=== PATIENT | female | born 1965 | race Caucasian/White ===

== ENCOUNTER → 2019-11-25 09:04 | Outpatient (CLI) | payer OTHER, SELFPAY ==
--- NOTE | 2019-11-25 09:07 | DI.RAD.S_ITS ---
PROCEDURE: XR LUMBAR SPINE MIN 4V INDICATIONS: Progressive low back TECHNIQUE: 5 total views of the lumbar spine were acquired, including bilateral oblique views. COMPARISON: None. FINDINGS: Bones: 5 nonrib-bearing, lumbar type vertebral bodies are seen. Minimal levoconvex scoliotic curvature is seen. No focal AP alignment abnormality is seen. No displaced fractures are seen. No suspicious lytic or blastic lesions are seen. Mild to moderate disc space narrowing is seen at the L5-S1 level. The disc heights otherwise appear well-preserved. Lower lumbar spine facet arthropathy is seen. Soft tissues: Overlying bowel gas pattern is normal. No suspicious soft tissue calcifications. Atherosclerotic calcification is noted. Oblique images: No pars defects. IMPRESSION: Focal L5-S1 degenerative change is seen. Minimal levoconvex scoliotic curvature. No pars defects are seen. Dictated by: Rosalio Covarrubias M.D. on 11/25/2019 at 10:23 Approved by: Rosalio Covarrubias M.D. on 11/25/2019 at 10:24
== END ==
PROVIDERS: PCP Nurse Practitioner; Referring Provider Physical Medicine & Rehabilitation; Visit Provider Physical Medicine & Rehabilitation
DX: M54.5 Low back pain (principal); M47.27 Other spondylosis with radiculopathy, lumbosacral region
CPT/HCPCS: 72110

== ENCOUNTER → 2020-01-05 15:44 | Outpatient (CLI) | payer OTHER, SELFPAY | PROVIDERS: PCP Nurse Practitioner; Referring Provider Nurse Practitioner; Visit Provider Physical Medicine & Rehabilitation | DX: M54.16 Radiculopathy, lumbar region (principal); Z53.20 Procedure and treatment not carried out because of patient's decision for unspecified reasons ==

== ENCOUNTER → 2020-01-15 17:05 | Outpatient (CLI) | payer OTHER, SELFPAY ==
--- NOTE | 2020-01-15 | DI.MRI.S_ITS ---
PROCEDURE: MR LUMBAR SPINE WO CON INDICATIONS: Radiculopathy, lumbar region TECHNIQUE: Noncontrast sagittal T1 spin echo and T2 fast echo, sagittal STIR, axial T1 and T2 fast spin echo through the lumbar spine. In cases with scoliosis, additional coronal T2 fast spin echo may be performed. COMPARISON: None. FINDINGS: Image quality: Excellent. Alignment and Curvature: There is normal bony alignment. Bone Marrow: Marrow is of normal overall signal. No acute vertebral body compression fractures. Spinal Cord: Conus medullaris terminates at the T12-L1 level. Visualized cord demonstrates normal signal and size. Paraspinous Soft Tissues: No paravertebral masses. L1-L2: No appreciable degenerative disc disease or facet osteoarthritis. L2-L3: There is a mild degree of degenerative disc height reduction and disc desiccation and a slight posterior transverse disc bulge that does not produce significant spinal stenosis. Mild facet osteoarthritis without foraminal stenosis. 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 The impingement is symmetric, moderate, and also involves the neural foramen. L4-L5: Moderate degenerative disc height reduction and desiccation, moderately severe facet osteoarthritis. Ligamentum flavum hypertrophy is present as a result, and this further crowds the nerve roots within the thecal sac to a greater degree than that seen immediately above, with moderately severe spinal stenosis. Foraminal stenosis is moderately severe also.. L5-S1: The degenerative changes at this level are less, with only a small degree of disc height reduction and disc desiccation. Facet osteoarthritis is moderate, but not significantly narrowing the neural foramen. No significant spinal or foraminal stenosis. IMPRESSION: Multilevel degenerative changes as detailed, most pronounced at L3-4 and L4-5. No disc herniation is found. Significant spinal and foraminal stenosis would be expected and is visualized from L3 through L5. Dictated by: Austin Miller M.D. on 01/16/2020 at 16:32 Approved by: Austin Miller M.D. on 01/16/2020 at 16:38
== END ==
PROVIDERS: PCP Nurse Practitioner; Referring Provider Physical Medicine & Rehabilitation; Visit Provider Physical Medicine & Rehabilitation
DX: M47.26 Other spondylosis with radiculopathy, lumbar region (principal)
CPT/HCPCS: 72148

== ENCOUNTER → 2021-07-05 14:11 | Outpatient (CLI) | payer OTHER, SELFPAY ==
[2021-07-05 15:09] LABS: COVID19 -Nasal RAPID Negative (Negative)
== END ==
PROVIDERS: PCP Nurse Practitioner; Visit Provider Physical Medicine & Rehabilitation
DX: Z20.822 Contact with and (suspected) exposure to COVID-19 (principal)
CPT/HCPCS: 87635; C9803

== ENCOUNTER 2021-07-07 07:26 | Outpatient (CLI) | payer OTHER, SELFPAY ==
[2021-07-07] VITALS (8 sets, daily range): BP systolic 107–131; BP diastolic 63–82; PULSE 66–72; RESP 11–25; TEMP 36.2; O2SAT 96–100
--- NOTE | 2021-07-07 07:36 | DI.RAD.S_ITS ---
PROCEDURE: PAIN L/S TRANSFORAMINAL INJECT INDICATIONS: SPONDYLOSIS COMPARISON: [facility], CR, XR LUMBAR SPINE MIN 4V, 11/25/2019, 9:03. FINDINGS: Fluoroscopic spot filming was performed to verify placement of a spinal needle at the L4-L5 level, as labeled on the films. Appropriate location of the needle tip was confirmed by injection of iodinated contrast. IMPRESSION: Intraprocedural examination within normal limits. Dictated by: Rosalio Covarrubias M.D. on 07/07/2021 at 8:58 Approved by: Rosalio Covarrubias M.D. on 07/07/2021 at 8:59
--- NOTE | 2021-07-07 07:38 | DI.RAD.S_ITS ---
PROCEDURE: XR SHOULDER RT MIN 2V INDICATIONS: Right shoulder bicipital tendinitis TECHNIQUE: 3 views of the shoulder were acquired. COMPARISON: None. FINDINGS: Bones: No fractures or dislocations. No suspicious bony lesions. Visualized ribs appear intact. [id number] acromioclavicular degenerative narrowing. No erosions. Soft tissues: No suspicious soft tissue calcifications. IMPRESSION: [id number] acromioclavicular arthritis. Dictated by: Patricia Kelley M.D. on 07/07/2021 at 11:10 Approved by: Patricia Kelley M.D. on 07/07/2021 at 11:10
[2021-07-07] MEDS: MIDAZOLAM 5 MG/5 ML VIAL IV (08:23)
[2021-07-07] MEDS: BUPIVACAINE 0.25% (PF) VIAL 2 ML INJ (08:28)
[2021-07-07] MEDS: IOPAMIDOL 15 ML VIAL 3 ML INJ (08:28)
[2021-07-07] MEDS: DEXAMETHASONE 10 MG/ML VIAL 20 MG INJ (08:29)
[2021-07-07] MEDS: BETAMETHASONE 30 MG/5 ML MDV (08:29)
--- NOTE | 2021-07-07 08:41 | P.PCN_ITS ---
Date/Time/Diagnoses Date of procedure: 07/07/21 Time of procedure: 08:41 Pre-procedure diagnosis: 1. FORAMINAL STENOSIS WITH LE SYMPTOMS Post-procedure diagnosis: same Procedure Notes Procedure: 1. FLUOROSCOPICALLY GUIDED CONTRAST CONTROLLED TRANSFORAMINAL EPIDURAL STEROID INJECTION - RIGHT L4/5 TFESI Indications: Alecia is referred by YON Beatty for treatment of Foraminal Stenosis with Right LE Symptoms Physician: Frank Rivera Total Fluoroscopy time (seconds): 12 Total sedation minutes: 13 Complications: none Procedure in detail & Post-procedure care: FINDINGS Foraminal Nerve Root Compression secondary to disc disease and facet hypertrophy DESCRIPTION OF PROCEDURE Following review of allergy and review of potential side effects and complications, including, but not necessarily limited to, infection, allergic reaction, local tissue breakdown, stroke, temporary or permanent nerve injury, paralysis, and possible , the patient indicated that the patient understood and agreed to proceed. An informed consent document was signed by the patient, witnessed by a nurse, and placed in the patient's chart. Additionally, other treatment options including medications, modalities, and physical therapy were reviewed with the patient. After review of previous anaesthesic history and IV conscious sedation the patient was deemed safe to proceed with today?s procedure with IV conscious sedation as ASA class II designation. Safety time-out was performed to confirm patient ID, procedure to be performed and site of procedure. IV sedation was accomplished with a combination of 2mg of Versed was administered by the RN after DO order, titrated to patient comfort during the course of the procedure while the patient remained responsive to all verbal commands In the prone position following sterile prep and drape of the lumbar region, the right L4/5 posterior neuroforamen was identified fluoroscopically. The skin was anesthetized via a 25-gauge 1.5-inch needle with 1% lidocaine solution. At this point, a 25-gauge 3.5-inch spinal needle was atraumatically introduced and advanced under fluoroscopic guidance through the posterior right L4/5 neuroforamen to approximately the anterior aspect of the canal. Depth was confirmed on lateral view. Following negative aspiration, injection of approximately 1.5cc of Isovue 200 under live fluoroscopy in the AP view c onfirmed excellent flow along the nerve root, into the epidural space without vascular or intrathecal uptake observed Radiological data, including multiple fluoroscopic views of the lumbosacral spi ne, reveal a spinal needle at the right L4/5 posterior neuroforamen. Subsequent views show flow of contrast material flowing superiorly and inferiorly along the nerve root confirming epidural flow. Subsequently, a test dose of 1.5 cc of 1% lidocaine solution was administered and patient was observed for two minutes for signs or symptoms of complications, including abdominal pain, shortness of breath, bilateral upper or lower extremity weakness, nausea and vomiting, prior to steroid injection. At this point, a total of 3cc or 20mg of dexamethasone and 6mg of betamethasone was injected without incident. The procedure tolerated the procedure well without signs or symptoms of complications prior to transfer to the recovery area continued monitoring without incident. The patient was then transferred to the recovery area where they were observed for an appropriate time after the injection. The patient reported a VAS score of 7 prior to the procedure and a post- procedure VAS of 0. POST OP INSTRUCTIONS The patient was provided a Pain Log to continue to record their response to the target-specific procedure prior to follow-up visit with their referring physician. Additionally, specific post-injection care instructions and a contact number to our office were provided if concerns arise regarding possible complications associated with the procedure are suspected.
== END 2021-07-07 09:00 | disposition home or self-care (01) ==
LOC: RAD 07:27
PROVIDERS: PCP Nurse Practitioner; Referring Provider Physical Medicine & Rehabilitation; Visit Provider Physical Medicine & Rehabilitation
DX: M75.21 Bicipital tendinitis, right shoulder; M75.41 Impingement syndrome of right shoulder; M19.011 Primary osteoarthritis, right shoulder; M48.061 Spinal stenosis, lumbar region without neurogenic claudication; M51.16 Intervertebral disc disorders with radiculopathy, lumbar region
CPT/HCPCS: 64483; 73030; 99152; J0702; J1100; J2250; J3010

== ENCOUNTER → 2021-09-07 15:43 | Outpatient (CLI) | payer OTHER, SELFPAY ==
--- NOTE | 2021-09-07 15:45 | DI.MRI.S_ITS ---
PROCEDURE: MR LUMBAR SPINE WO CON INDICATIONS: Right L5 radiculopathy TECHNIQUE: Noncontrast sagittal T1 spin echo and T2 fast echo, sagittal STIR, and T2 fast spin echo through the lumbar spine. In cases with scoliosis, additional coronal T2 fast spin echo may be performed. COMPARISON: [facility], CR, XR LUMBAR SPINE MIN 4V, 11/25/2019, 9:03. [facility], MR, MR LUMBAR SPINE WO CON, 01/15/2020, 17:18. FINDINGS: Image quality: Excellent. Alignment and Curvature: 5 lumbar type vertebral bodies are present by plain film. Roughly 3 mm of retrolisthesis of L2 on L3. Bone Marrow: Marrow is of normal overall signal. No acute vertebral body compression fractures. Spinal Cord: Conus medullaris terminates at the mid L1 level. Visualized cord demonstrates normal signal and size. Paraspinous Soft Tissues: No paravertebral masses. T12-L1: Mild disc height loss. Mild diffuse disc bulge with small superimposed right posterolateral protrusion. Mild canal stenosis. No foraminal stenosis. L1-L2: Mild disc height loss and desiccation. Mild diffuse disc bulge. Mild bilateral facet hypertrophy. Mild epidural lipomatosis. No significant canal stenosis. Mild bilateral foraminal stenosis. No significant change. L2-L3: Mild disc height loss and desiccation. Mild diffuse disc bulge. Mild epidural lipomatosis. Mild facet hypertrophy. Mild canal stenosis. Mild bilateral foraminal stenosis. No significant change. L3-L4: Mild disc desiccation and diffuse disc bulge. Mild facet and ligamentum flavum hypertrophy. Mild epidural lipomatosis. Moderate canal stenosis. Mild bilateral foraminal stenosis. No significant change. L4-L5: Mild disc height loss and desiccation. Mild diffuse disc bulge. Mild facet and ligamentum flavum hypertrophy. Mild epidural lipomatosis. Severe canal stenosis. Mild left and moderate right foraminal stenosis. No significant change. L5-S1: Mild disc desiccation. Mild bilateral facet hypertrophy. Mild epidural lipomatosis. Mild canal stenosis. Mild bilateral foraminal stenosis. No significant change. IMPRESSION: 1. Multilevel degenerative disc and facet disease, as well as ligamentum flavum hypertrophy and epidural lipomatosis. 2. Multilevel canal stenoses, worst at L4-L5 where there is severe canal stenosis. 3. Multilevel foraminal stenoses, worst at L4-L5 where there is moderate foraminal stenosis. Dictated by: Alla Jesus M.D. on 09/08/2021 at 9:12 Approved by: Alla Jesus M.D. on 09/08/2021 at 9:16
== END ==
PROVIDERS: PCP Nurse Practitioner; Referring Provider Physical Medicine & Rehabilitation; Visit Provider Physical Medicine & Rehabilitation
DX: M54.16 Radiculopathy, lumbar region (principal); M51.36 Other intervertebral disc degeneration, lumbar region; M48.061 Spinal stenosis, lumbar region without neurogenic claudication; E88.2 Lipomatosis, not elsewhere classified; M46.06 Spinal enthesopathy, lumbar region
CPT/HCPCS: 72148

== ENCOUNTER → 2021-09-12 14:31 | Outpatient (CLI) | payer OTHER, SELFPAY ==
--- NOTE | 2021-09-12 14:32 | DI.RAD.S_ITS ---
PROCEDURE: XR LUMBAR SPINE MIN 4V INDICATIONS: BACK PAIN TECHNIQUE: 5 views of the lumbar spine were acquired, including bilateral oblique views. COMPARISON: [facility], , XR LUMBAR SPINE MIN 4V, 11/25/2019, 9:03. FINDINGS: Bones: 5 nonrib-bearing vertebrae are present. There is 5 mm retrolisthesis of L2 on L3. Mild degenerative endplate changes are seen throughout lumbar spine. No vertebral body compression fractures. No suspicious bony lesions. Soft tissues: Overlying bowel gas pattern is normal. No suspicious soft tissue calcifications. Oblique images: No pars defects. IMPRESSION: 5 mm retrolisthesis of L2 on L3. No acute compression fracture. Mild degenerative disc disease throughout lumbar spine. Dictated by: Eric Sams M.D. on 09/12/2021 at 15:21 Approved by: Eric Sams M.D. on 09/12/2021 at 15:22
== END ==
PROVIDERS: PCP Nurse Practitioner; Referring Provider Physical Medicine & Rehabilitation; Visit Provider Physical Medicine & Rehabilitation
DX: M51.16 Intervertebral disc disorders with radiculopathy, lumbar region
CPT/HCPCS: 72110

== ENCOUNTER → 2021-09-19 13:51 | Outpatient (CLI) | payer OTHER, SELFPAY ==
[2021-09-19 16:09] LABS: COVID19 -Nasal RAPID Negative (Negative)
== END ==
PROVIDERS: PCP Nurse Practitioner; Visit Provider Physical Medicine & Rehabilitation
DX: Z20.822 Contact with and (suspected) exposure to COVID-19 (principal)
CPT/HCPCS: 87635; C9803

== ENCOUNTER 2021-09-20 08:59 | Outpatient (CLI) | payer OTHER, SELFPAY ==
[2021-09-20] VITALS (8 sets, daily range): BP systolic 111–126; BP diastolic 63–82; PULSE 66–73; RESP 12–24; TEMP 35.9; O2SAT 98–100
--- NOTE | 2021-09-20 09:00 | DI.RAD.S_ITS ---
PROCEDURE: PAIN L INTERLAMINAR/CAUDAL INJ INDICATIONS: SPONDYLOSIS COMPARISON: None. FINDINGS: Fluoroscopic spot filming was performed to verify placement of spinal needles at the L4-L5 interlaminar space level(s), as labeled on the films. Appropriate location(s) of the needle tip(s) was confirmed by injection of iodinated contrast. IMPRESSION: Access needle at the L4-L5 interlaminar space for translaminar epidural steroid injection. Dictated by: Mary Hickey MD, PhD on 09/20/2021 at 11:29 Approved by: Mary Hickey MD, PhD on 09/20/2021 at 11:30
[2021-09-20] MEDS: MIDAZOLAM 2 MG/2 ML VIAL IV (10:20)
[2021-09-20] MEDS: BETAMETHASONE 30 MG/5 ML MDV 6 MG INJ (10:25)
[2021-09-20] MEDS: IOPAMIDOL 15 ML VIAL 3 ML INJ (10:25)
[2021-09-20] MEDS: BUPIVACAINE 0.25% (PF) VIAL 2 ML INJ (10:25)
[2021-09-20] MEDS: DEXAMETHASONE 10 MG/ML VIAL 20 MG INJ (10:26)
--- NOTE | 2021-09-20 10:32 | P.PCN_ITS ---
Date/Time/Diagnoses Date of procedure: 09/20/21 Time of procedure: 10:32 Pre-procedure diagnosis: 1. HNP WITH RADICULAR FEATURES, 2. MULTILEVEL CENTRAL STENOSIS, Post-procedure diagnosis: same Procedure Notes Procedure: 1. FLUOROSCOPICALLY GUIDED CONTRAST CONTROLLED INTERLAMINAR EPIDURAL STEROID INJECTION -L4/5 Indications: Leanna is referred by YON Beatty for treatment of Bilateral Foraminal Stenosis R>L LE symptoms. Physician: Frank Rivera Total Fluoroscopy time (seconds): 5 Total sedation minutes: 8 Complications: none Procedure in detail & Post-procedure care: FINDINGS Multilevel Central Spinal Stenosis with Nerve Root Compression DESCRIPTION OF PROCEDURE Fluoroscopically guided, contrast-controlled L4/5 translaminar epidural steroid injection. Following review of allergy and review of potential side effects and complications, including, but not necessarily limited to, infection, allergic reaction, local tissue breakdown, temporary as well as permanent nerve injury, paralysis, stroke and possible , the patient indicated that the patient understood and agreed to proceed. An informed consent document was signed by the patient, witnessed by a nurse, and placed in the patient's chart. Additionally, other treatment options including modalities, medications, and physical therapy were reviewed with the patient. After review of previous anaesthesic history and IV conscious sedation the patient was deemed safe to proceed with today?s procedure with IV conscious sedation as ASA class II designation. Safety time-out was performed to confirm patient ID, procedure to be performed and site of procedure. IV sedation was accomplished with a combination of 2mg of Versed was administered by the RN after DO order, titrated to patient comfort during the course of the procedure while the patient remained responsive to all verbal commands In the prone position, following sterile prep and drape of the lumbar region, the L4/5 translaminar space was identified fluoroscopically. The skin was anesthetized via a 25-gauge, 1.5inch needle with 1% lidocaine solution. At this point, a 22-gauge short bevel spinal needle was atraumatically introduced and a dvanced under fluoroscopic guidance into the region of the L4/5 translaminar space. Depth was confirmed on lateral view. Radiological data, including multiple fluoroscopic views of the lumbar spine, reveal a spinal needle at the L4/5 translaminar space. Lateral views then show placement of the needle in the epidural space. Subsequent views show contrast material flowing superiorly and inferiorly in the epidural space. No vascular or intrathecal uptake is observed. At this point, using loss of resistance technique with saline and air, the epidural space was entered. This was confirmed following negative aspiration with injection of approximately 1.5cc of Isovue 200, showing excellent epidural flow without vascular or intrathecal uptake. At this point, 1cc of 1% lidocaine solution combined with 3cc or 20mg of dexamethasone and 6mg betamethasone was injected without incident. The patient tolerated the procedure well without signs or symptoms of complications prior to transfer to the recovery area continued monitoring without incident. The patient was then transferred to the recovery area where they were observed for an appropriate period of time after the injection. The patient reported a VAS score of 6 prior to the procedure and a post- procedure VAS of 0. POST OP INSTRUCTIONS The patient was provided a Pain Log to continue to record their response to the target-specific procedure prior to follow-up visit with their referring physician. Additionally, specific post-injection care instructions and a contact number to our office were provided if concerns arise regarding possible complications associated with the procedure are suspected.
== END 2021-09-20 10:54 | disposition home or self-care (01) ==
LOC: RAD 09:00
PROVIDERS: PCP Nurse Practitioner; Referring Provider Physical Medicine & Rehabilitation; Visit Provider Physical Medicine & Rehabilitation
DX: M51.16 Intervertebral disc disorders with radiculopathy, lumbar region (principal); M48.061 Spinal stenosis, lumbar region without neurogenic claudication
CPT/HCPCS: 62323; J0702; J1100; J2250

== ENCOUNTER → 2021-11-29 13:50 | Outpatient (CLI) | payer OTHER, SELFPAY ==
[2021-11-29 14:28] LABS: COVID19 -Nasal RAPID Negative (Negative)
== END ==
PROVIDERS: PCP Nurse Practitioner; Visit Provider Physical Medicine & Rehabilitation
DX: Z20.822 Contact with and (suspected) exposure to COVID-19 (principal)
CPT/HCPCS: 87635; C9803

== ENCOUNTER 2021-12-01 09:33 | Outpatient (CLI) | payer OTHER, SELFPAY ==
[2021-12-01] VITALS (9 sets, daily range): BP systolic 145–177; BP diastolic 88–98; PULSE 54–70; RESP 14–20; TEMP 36.1; O2SAT 97–100
--- NOTE | 2021-12-01 09:35 | DI.RAD.S_ITS ---
PROCEDURE: PAIN L/S TRANSFORAMINAL INJECT INDICATIONS: SPONDYLOSIS COMPARISON: [facility], MR, MR LUMBAR SPINE WO CON, 09/07/2021, 15:49. [facility], CR, XR LUMBAR SPINE MIN 4V, 09/12/2021, 14:25. FINDINGS: Fluoroscopic spot filming was performed to verify placement of spinal needles at the right L5-S1 level(s), as labeled on the films. Appropriate location(s) of the needle tip(s) was confirmed by injection of iodinated contrast. IMPRESSION: Fluoroscopy for pain management. Dictated by: Milton Herrmann M.D. on 12/01/2021 at 16:29 Approved by: Milton Herrmann M.D. on 12/01/2021 at 16:30
[2021-12-01] MEDS: MIDAZOLAM 2 MG/2 ML VIAL IV (10:30)
[2021-12-01] MEDS: IOPAMIDOL 15 ML VIAL 3 ML INJ (10:36)
[2021-12-01] MEDS: DEXAMETHASONE 10 MG/ML VIAL 20 MG INJ (10:37)
[2021-12-01] MEDS: BUPIVACAINE 0.25% (PF) VIAL 2 ML INJ (10:37)
[2021-12-01] MEDS: BETAMETHASONE 30 MG/5 ML MDV 6 MG INJ (10:37)
--- NOTE | 2021-12-01 10:47 | P.PCN_ITS ---
Date/Time/Diagnoses Date of procedure: 12/01/21 Time of procedure: 10:47 Pre-procedure diagnosis: FORAMINAL STENOSIS WITH LE SYMPTOMS Post-procedure diagnosis: same Procedure Notes Procedure: 1. FLUOROSCOPICALLY GUIDED CONTRAST CONTROLLED TRANSFORAMINAL EPIDURAL STEROID INJECTION - RIGHT L5/S1 TFESI Indications: Ryan referred by YON Beatty for treatment of Foraminal Stenosis with Right LE Symptoms Physician: Frank Rivera Total Fluoroscopy time (seconds): 10 Total sedation minutes: 13 Complications: none Procedure in detail & Post-procedure care: FINDINGS Foraminal Nerve Root Compression secondary to disc disease and facet hypertrophy DESCRIPTION OF PROCEDURE Following review of allergy and review of potential side effects and complications, including, but not necessarily limited to, infection, allergic re action, local tissue breakdown, stroke, temporary or permanent nerve injury, paralysis, and possible , the patient indicated that the patient understood and agreed to proceed. An informed consent document was signed by the patient, witnessed by a nurse, and placed in the patient's chart. Additionally, other treatment options including medications, modalities, and physical therapy were reviewed with the patient. After review of previous anaesthesic history and IV conscious sedation the patient was deemed safe to proceed with today?s procedure with IV conscious sedation as ASA class II designation. Safety time-out was performed to confirm patient ID, procedure to be performed and site of procedure. IV sedation was accomplished with a combination of 2mg of Versed was administered by the RN after DO order, titrated to patient comfort during the course of the procedure while the patient remained responsive to all verbal commands In the prone position following sterile prep and drape of the lumbar region, the right L5/S1 posterior neuroforamen was identified fluoroscopically. The skin was anesthetized via a 25-gauge 1.5-inch needle with 1% lidocaine solution. At this point, a 25-gauge 3.5-inch spinal needle was atraumatically introduced and advanced under fluoroscopic guidance through the posterior right L5/S1 neuroforamen to approximately the anterior aspect of the canal. Depth was confirmed on lateral view. Following negative aspiration, injection of approximately 1.5cc of Isovue 200 under live fluoroscopy in the AP view confirmed excellent flow along the nerve root, into the epidural space without vascular or intrathecal uptake observed Radiological data, including multiple fluoroscopic views of the lumbosacral spine, reveal a spinal needle at the right L5/S1 posterior neuroforamen. Subsequent views show flow of contrast material flowing superiorly and inferiorly along the nerve root confirming epidural flow. Subsequently, a test dose of 1.5 cc of 1% lidocaine solution was administered and patient was observed for two minutes for signs or symptoms of complications, including abdominal pain, shortness of breath, bilateral upper or lower extrem ity weakness, nausea and vomiting, prior to steroid injection. At this point, a total of 3cc or 20mg of dexamethasone and 6mg of betamethasone was injected without incident. The procedure tolerated the procedure well without signs or symptoms of complications prior to transfer to the recovery area continued monitoring without incident. The patient was then transferred to the recovery area where they were observed for an appropriate time after the injection. The patient reported a VAS score of 7 prior to the procedure and a post- procedure VAS of 0. POST OP INSTRUCTIONS The patient was provided a Pain Log to continue to record their response to the target-specific procedure prior to follow-up visit with their referring physician. Additionally, specific post-injection care instructions and a contact number to our office were provided if concerns arise regarding possible complications associated with the procedure are suspected.
== END 2021-12-01 11:07 | disposition home or self-care (01) ==
LOC: RAD 09:34
PROVIDERS: PCP Nurse Practitioner; Referring Provider Physical Medicine & Rehabilitation; Visit Provider Physical Medicine & Rehabilitation
DX: M47.816 Spondylosis without myelopathy or radiculopathy, lumbar region (principal); M54.16 Radiculopathy, lumbar region
CPT/HCPCS: 64483; 99152; J0702; J1100; J2250; J3490

== ENCOUNTER → 2022-07-13 12:08 | Outpatient (CLI) | payer OTHER, SELFPAY | PROVIDERS: Family Provider Nurse Practitioner; PCP Nurse Practitioner; Referring Provider Physical Medicine & Rehabilitation; Visit Provider Physical Medicine & Rehabilitation | DX: G56.00 Carpal tunnel syndrome, unspecified upper limb (principal) | CPT/HCPCS: 95885; 95886; 95912 ==

== ENCOUNTER → 2022-11-08 08:47 | Outpatient (CLI) | payer OTHER, SELFPAY ==
--- NOTE | 2022-11-08 08:47 | DI.MRI.S_ITS ---
PROCEDURE: MR KNEE LT WO CON INDICATIONS: left knee sprain with possible meniscal tear, collateral lig TECHNIQUE: Noncontrast sagittal PD fast spin echo and T2 fast spin echo with fat saturation, sagittal 3-D FLASH with fat saturation; coronal T1 spin echo and PD fast spin echo with fat saturation, and axial PD fast spin echo with fat saturation through the knee. COMPARISON: [facility], CR, XR KNEE ARTHRITIC SERIES BI, 08/14/2022, 15:46. FINDINGS: Image quality: Excellent. Anterior Cruciate Ligament: Intact. Posterior Cruciate Ligament: Intact. Medial Collateral Ligament: Intact. Lateral Collateral Ligament: Intact. Medial Meniscus: Intact. Lateral Meniscus: Intact. Medial and Lateral Tendons: The semimembranosus tendon insertions and meniscocapsular junction appear intact. Visualized portions of the pes anserinus tendons appear normal. No abnormal bursal fluid. The long and short heads of the biceps femoris tendon appear intact. The popliteus tendon appears intact. No signs of posterolateral corner injury. Iliotibial band appears normal. Anterior Structures: Small distal quadriceps enthesophyte. The quadriceps and patellar tendons appear intact. No patellar subluxation. No femoral trochlear dysplasia or ventral trochlear prominence. No edema in the infrapatellar fat pad. Bones: No acute trabecular bone injury or fracture. Articular cartilages: Generalized partial-thickness cartilage thinning is seen throughout the knee with superimposed focal high-grade partial-thickness cartilage irregularity at the median ridge and medial facet of the patella. Soft Tissues: A small amount of joint fluid is present. Trace medial popliteal cyst. The musculature surrounding the knee is normal in bulk. IMPRESSION: 1. 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 2. No acute trabecular bone injury. The cruciate and collateral ligaments are intact. There is no meniscal tear. 3. Small joint effusion. Approved by: Maximo Stewart M.D. on 11/08/2022 at 15:00
== END ==
PROVIDERS: Family Provider Nurse Practitioner; PCP Nurse Practitioner; Referring Provider Physical Medicine & Rehabilitation; Visit Provider Physical Medicine & Rehabilitation
DX: S83.207A Unspecified tear of unspecified meniscus, current injury, left knee, initial encounter (principal); S83.429A Sprain of lateral collateral ligament of unspecified knee, initial encounter; M94.262 Chondromalacia, left knee; M25.462 Effusion, left knee
CPT/HCPCS: 73721

== ENCOUNTER 2023-06-14 07:25 | Outpatient (CLI) | payer OTHER, SELFPAY ==
[2023-06-14] VITALS (10 sets, daily range): BP systolic 131–167; BP diastolic 77–96; PULSE 65–74; RESP 9–18; TEMP 36; O2SAT 95–100
--- NOTE | 2023-06-14 08:00 | DI.RAD.S_ITS ---
PROCEDURE: PAIN L/S TRANSFORAM INJECT SHILO COMPARISON: None. INDICATIONS: SPINAL STENOSIS FINDINGS: Intraoperative image demonstrate needle and contrast placement overlying L4-5. IMPRESSION: Needle and contrast placement overlying L4-5. Dictated by: Patricia Kelley M.D. on 06/14/2023 at 10:56 Approved by: Patricia Kelley M.D. on 06/14/2023 at 10:57
[2023-06-14] MEDS: MIDAZOLAM 2 MG/2 ML VIAL IV (08:08)
[2023-06-14] MEDS: DEXAMETHASONE 10 MG/ML VIAL 20 MG INJ (08:08)
[2023-06-14] MEDS: BETAMETHASONE 30 MG/5 ML MDV 12 MG INJ (08:18)
[2023-06-14] MEDS: BUPIVACAINE 0.25% (PF) VIAL 2 ML INJ (08:18)
[2023-06-14] MEDS: iopamidoL 15 ML VIAL 3 ML INJ (08:19)
[2023-06-14] MEDS: fentaNYL 100 MCG/2 ML INJ 50 MCG IV (08:21)
--- NOTE | 2023-06-14 08:34 | P.PCN_ITS ---
Date/Time/Diagnoses Date of procedure: 06/14/23 Time of procedure: 08:34 Pre-procedure diagnosis: 1. FORAMINAL STENOSIS WITH LE SYMPTOMS Procedure Notes Procedure: 1. FLUOROSCOPICALLY GUIDED CONTRAST CONTROLLED TRANSFORAMINAL EPIDURAL STEROID INJECTION - BILATERAL L4/5 TFESI Indications: Alecia is referred by YON Beatty for treatment of Foraminal Stenosis with bilateral LE Symptoms Physician: Frank Rivera Total Fluoroscopy time (seconds): 16 Total sedation minutes: 23 Complications: none Procedure in detail & Post-procedure care: FINDINGS Foraminal Nerve Root Compression secondary to disc disease and facet hypertrophy DESCRIPTION OF PROCEDURE Following review of allergy and review of potential side effects and complications, including, but not necessarily limited to, infection, allergic reaction, local tissue breakdown, stroke, temporary or permanent nerve injury, paralysis, and possible , the patient indicated that the patient understood and agreed to proceed. An informed consent document was signed by the patient, witnessed by a nurse, and placed in the patient's chart. Additionally, other treatment options including medications, modalities, and physical therapy were reviewed with the patient. After review of previous anaesthesic history and IV conscious sedation the patient was deemed safe to proceed with today?s procedure with IV conscious sedation as ASA class II designation. Safety time-out was performed to confirm patient ID, procedure to be performed and site of procedure. IV sedation was accomplished with a combination of 2mg of Versed and 50mcg of Fentanyl was administered by the RN after DO order, titrated to patient comfort during the course of the procedure while the patient remained responsive to all verbal commands In the prone position following sterile prep and drape of the lumbar region, the right L4/5 posterior neuroforamen was identified fluoroscopically. The skin was anesthetized via a 25-gauge 1.5-inch needle with 1% lidocaine solution. At this point, a 25-gauge 3.5-inch spinal needle was atraumatically introduced and advanced under fluoroscopic guidance through the posterior right L4/5 neuroforamen to approximately the anterior aspect of the canal. Depth was confirmed on lateral view. Following negative aspiration, injection of approximately 1.5cc of Isovue 200 under live fluoroscopy in the AP view confirmed excellent flow along the nerve root, into the epidural space without vascular or intrathecal uptake observed Radiological data, including multiple fluoroscopic views of the lumbosacral spine, reveal a spinal needle at the right L4/5 posterior neuroforamen. Subsequent views show flow of contrast material flowing superiorly and inferiorly along the nerve root confirming epidural flow. Subsequently, a test dose of 1.5cc of 1% lidocaine solution was administered and patient was observed for two minutes for signs or symptoms of complications, including abdominal pain, shortness of breath, bilateral upper or lower extremity weakness, nausea and vomiting, prior to steroid injection. At this point, a total of 2cc or 10mg of dexamethasone and 6mg betamethasone was injected without incident. Attention was then refocused to the left L4/5 level where the identical procedure was replicated. The procedure tolerated the procedure well without signs or symptoms of complications prior to transfer to the recovery area continued monitoring withou t incident. The patient was then transferred to the recovery area where they were observed for an appropriate time after the injection. The patient reported a VAS score of 7 prior to the procedure and a post-procedure VAS of 0. POST OP INSTRUCTIONS The patient was provided a Pain Log to continue to record their response to the target-specific procedure prior to follow-up visit with their referring physician. Additionally, specific post-injection care instructions and a contact number to our office were provided if concerns arise regarding possible complications associated with the procedure are suspected.
--- NOTE | 2023-06-14 09:04 | PC.NURSE ---
Patient arrived to the post procedure room via . When transferred from the to the recliner it was noticed that she had some weakness and numbness in her right leg. Dr. Rivera aware. This nurse reassessed patient's mobility @ 0850. Patient c/o right toe numbness. 0903 patient's mobility reassessed with 2 person minimal assist. Patient was able to stand and take steps forward and back; however, she stated that her right leg feels slow. She also stated that she has 32 steps to get in to her house. Patient kept for monitoring until more stable on the right leg. Patient's VS stable; therefore, she was removed from the VS monitor.
--- NOTE | 2023-06-14 09:25 | PC.NURSE ---
0914 patient's mobility reassessed by this nurse with 2 person minimal assist. Patient stated that the numbness was completely gone and she felt stable on her feet. Dr. Rivera notified and patient discharged home.
== END 2023-06-14 09:14 | disposition home or self-care (01) ==
LOC: RAD 07:26
PROVIDERS: Family Provider Nurse Practitioner; PCP Nurse Practitioner; Referring Provider Physical Medicine & Rehabilitation; Visit Provider Physical Medicine & Rehabilitation
DX: M48.061 Spinal stenosis, lumbar region without neurogenic claudication (principal); M51.16 Intervertebral disc disorders with radiculopathy, lumbar region; M47.26 Other spondylosis with radiculopathy, lumbar region
CPT/HCPCS: 64483; 99152; 99153; J0702; J1100; J2250; J3010; J3490

== ENCOUNTER → 2024-12-03 12:34 | Outpatient (CLI) | payer OTHER, SELFPAY ==
--- NOTE | 2024-12-03 12:36 | DI.RAD.S_ITS ---
PROCEDURE: XR LUMBAR SPINE MIN 4V INDICATIONS: BACK PAIN TECHNIQUE: 5 views of the lumbar spine were acquired, including bilateral oblique views. COMPARISON: [facility], CR, XR LUMBAR SPINE MIN 4V, 09/12/2021, 14:25. [facility], CR, XR LUMBAR SPINE MIN 4V, 11/25/2019, 9:03. FINDINGS: Bones: 5 nonrib-bearing vertebrae are present. Degenerative grade 1, anterolisthesis of L4 on L5. Inferior lumbar facet arthrosis.. No vertebral body compression fractures. No suspicious bony lesions. Soft tissues: Overlying bowel gas pattern is normal. No suspicious soft tissue calcifications. Vascular calcifications. Oblique images: No pars defects. IMPRESSION: 1. Degenerative grade 1 anterolisthesis of L4 on L5. 2. Advanced inferior lumbar facet arthrosis. Dictated by: Gabe Martinez M.D. on 12/03/2024 at 14:34 Approved by: Gabe Martinez M.D. on 12/03/2024 at 14:34
== END ==
PROVIDERS: Family Provider Nurse Practitioner; PCP Nurse Practitioner; Referring Provider Physical Medicine & Rehabilitation; Visit Provider Physical Medicine & Rehabilitation
DX: M47.26 Other spondylosis with radiculopathy, lumbar region (principal); M43.16 Spondylolisthesis, lumbar region
CPT/HCPCS: 72110